=== PATIENT | male | born 1975 | race Two or more races ===

== ENCOUNTER 2017-04-25 08:30 | Emergency (ER) | payer SELFPAY ==
[~2017-04-25] VITALS: Ht 172.7 cm; Wt 59.0 kg
[2017-04-25 08:52] VITALS: Ht 172.7 cm; Wt 59.0 kg
[2017-04-25 11:29] VITALS: BP 171/97
== END 2017-04-25 11:25 | disposition home or self-care (01) ==
LOC: ED 08:30
DX: S92.512A Displaced fracture of proximal phalanx of left lesser toe(s), initial encounter for closed fracture (principal); X58.XXXA Exposure to other specified factors, initial encounter; Y93.89 Activity, other specified; Y92.89 Other specified places as the place of occurrence of the external cause; Y99.8 Other external cause status
CPT/HCPCS: J1885; Q0092